=== PATIENT | female | born 1955 | race Caucasian/White ===

== ENCOUNTER → 2017-10-31 16:04 | Outpatient (CLI) | payer OTHER, SELFPAY | PROVIDERS: Visit Provider Dermatology | DX: L02.416 Cutaneous abscess of left lower limb (principal) | CPT/HCPCS: 87070; 87077; 87186; 87205 ==

== ENCOUNTER → 2020-02-18 16:00 | Outpatient (CLI) | payer OTHER, SELFPAY ==
--- NOTE | 2020-02-18 | EGD_PTH ---
PATIENT: LIAM GOLDSTEIN LOC: [facility] U#:[id number] AGE/SX: 69/F ROOM: RE02/18/[address]: Dr. Jose Yen MD : 1955 BED: DIS: SPEC #: [id number] RECD: 02/18/20 15:56 STATUS: MEGHA CHAGO #: [id number] MATTHEW: 02/18/20 00:[address]: Jose Yen DEPT: SURGICAL PATHOLOGY RECD BY: Payam Lane ENTERED: 02/19/20 09:19 SP TYPE: EGD BIOPSY OTHR DR: No Primary Care Phys Tissues: A - Duodenum, NOS B - Gastric mucous membrane Procedures: Surgery Specimen Level IV HEADER OPERATION: EGD / colonoscopy PRE-OP DIAGNOSIS: Z86.010, K21.9, K90.0 TISSUE SUBMITTED: A - Duodenal biopsy, B - Antral biopsy MICROSCOPIC DIAGNOSIS A. Duodenal biopsy: Fragments of small intestinal mucosa, no pathologic diagnosis. B. Antral biopsy: Mild gastritis. See microscopic description and comment. SJ:joaquin 02/20/20 COMMENT B. The results of immunohistochemistry for Helicobacter pylori will be reported separately ([id number]). MICROSCOPIC DESCRIPTION Slides are reviewed. B. The specimen shows fragments of gastric mucosa with chronic inflammatory cell infiltrates in the lamina propria consisting of lymphocytes and plasma cells, consistent with mild chronic gastritis. GROSS DESCRIPTION A - Received in fixative is one container labeled with the patient's name and designated duodenal biopsy. The specimen consists of two irregular fragments of light caro soft tissue that in aggregate measure 0.5 x 0.3 x 0.1 cm. The specimen is totally submitted in one cassette. B - Received in fixative is one container labeled with the patient's name and designated antral biopsy. The specimen consists of one irregular fragment of light caro soft tissue that measures 0.2 x 0.1 x 0.1 cm. The specimen is totally submitted in one cassette. / AM:joaquin 02/19/20 TC:3 CPT: 91725 x2
--- NOTE | 2020-02-18 | IMM_PTH ---
PATIENT: LIAM GOLDSTEIN LOC: [facility] U#:[id number] AGE/SX: 69/F ROOM: RE02/18/[address]: Dr. Jose Yen MD : 1955 BED: DIS: SPEC #: [id number] RECD: 02/20/20 12:08 STATUS: MEGHA REQ #: [id number] MATTHEW: 02/18/20 00:[address]: Jose Yen DEPT: IMMUNOHISTOCHEMISTRY RECD BY: Andreea Kaplan ENTERED: 02/20/20 12:09 SP TYPE: IMMUNO OTHR DR: Mikayla Primary Care Phys Tissues: B - Stomach, NOS Procedures: H Pylori (initial) PHYSICIAN & INSTITUTION [place] [id number] SPECIMEN INFORMATION: Tissue Source: B - Antral biopsy Clinical Info: Z86.010; K21.9; K90.0 Specimen Number: [id number] CPT code: 00888 METHODOLOGY: Deparaffinized sections of prefer/formalin-fixed tissue or PAP/DQ stained slides are incubated with monoclonal/polyclonal antibodies/oligonucleotide probes. Localization is made via biotin free immunoperoxidase method. Appropriate controls are performed and reacted as expected. Results on target cell population are indicated in the following table: RESULTS: ANTIBODY / CLONE RESULT Block B H Pylori (polyclonal) negative These tests were developed and their performance characteristics determined by [facility]. They may not have been cleared or approved by the [place] Food and Drug Administration. The FDA has determined that such clearance or approval is not necessary. The above immunohistochemical/dualISH markers are ordered and reviewed by the Pathologist. INTERPRETATION: B. Antral biopsy: Negative for Helicobacter pylori organisms. SJ:joaquin 02/21/20
== END ==
PROVIDERS: Referring Provider Internal Medicine Gastroenterology; Visit Provider Internal Medicine Gastroenterology
DX: K21.9 Gastro-esophageal reflux disease without esophagitis (principal); K90.0 Celiac disease; Z86.010 Personal history of colon polyps
CPT/HCPCS: 88305; 88342